=== PATIENT | female | born 1955 | race Two or more races ===

== ENCOUNTER 2017-07-05 15:43 | Emergency (ER) | payer OTHER ==
--- NOTE | 2017-07-05 16:10 | PDOC ---
Rapid Medical Evaluation Time Seen by Provider: 07/05/17 16:08 Medical Evaluation: Allergies Allergy/AdvReac Type Severity Reaction Status Date / Time No Known Allergies Allergy Verified 01/25/17 10:32 I have performed a brief in-person evaluation of this patient. The patient presents with a chief complaint of: many allergies to pollen, congested, cough Pertinent physical exam findings: swelling to lower eyes I have ordered the following: nothing The patient will proceed to the ED for further evaluation.
[2017-07-05 16:14] VITALS: BP 152/92; PULSE 90; TEMP 98.2; BMI 37.0
--- NOTE | 2017-07-05 18:30 | PDOC ---
History of Present Illness - General Chief Complaint: Respiratory Stated Complaint: PAIN Time Seen by Provider: 07/05/17 16:08 History Source: Patient Exam Limitations: Language Barrier (AVST #[id number]) - History of Present Illness Initial Comments: 07/05/17 18:26 This is a 61-year-old woman past medical history of hypertension, NIDDM, left breast CA status post lumpectomy many years ago and seasonal ALLERGIES presents emergency departments with nasal congestion and eye swelling for the past 3 days. The patient states she is very concerned that paramedics. Have to come to the house for a heart attack or if she would stop breathing. Patient states she is able to breathe through her mouth without any difficulty and is concerned about her nasal congestion. Patient states she has this recurring symptoms every year around this time. She denies any fevers, cough, shortness of breath, chest pain, headaches, dizziness. Past History - Past Medical History Allergies/Adverse Reactions: Allergies Allergy/AdvReac Type Severity Reaction Status Date / Time No Known Allergies Allergy Verified 07/05/17 16:09 Home Medications: Ambulatory Orders Ipratropium [place] 15 ml NS TID 14 Days #2 spray 07/05/17 Cancer: Yes (RT BREAST) COPD: No Diabetes: Yes HTN: Yes - Suicide/Smoking/Psychosocial Hx Smoking History: Never smoked Review of Systems - Review of Systems Able to Perform ROS?: Yes Is the patient limited Slovak proficient: Yes Constitutional: No: Symptoms Reported HEENTM: Yes: See HPI Respiratory: No: Symptoms reported Cardiac (ROS): No: Symptoms Reported ABD/GI: No: Symptoms Reported : No: Symptoms Reported Musculoskeletal: No: Symptoms Reported Integumentary: No: Symptoms Reported Neurological: No: Symptoms reported *Physical Exam - Vital Signs Last Vital Signs Temp Pulse Resp BP Pulse Ox 98.2 F 90 19 152/92 100 07/05/17 16:09 07/05/17 16:09 07/05/17 16:09 07/05/17 16:09 07/05/17 16:09 - Physical Exam General Appearance: Yes: Appropriately Dressed. No: Apparent Distress HEENT: positive: TMs Normal, Nasal Congestion, Other (Inflamed nasal turbinates) . negative: Rhinorrhea Neck: positive: Trachea midline, Supple. negative: Stridor Respiratory/Chest: positive: Lungs Clear, Normal Breath Sounds. negative: Respiratory Distress, Accessory Muscle Use, Wheezing Cardiovascular: positive: Regular Rhythm, Regular Rate. negative: Murmur Musculoskeletal: positive: Normal Inspection Extremity: positive: Normal Inspection Integumentary: positive: Normal Color, Dry, Warm Neurologic: positive: Alert, Normal Response Medical Decision Making - Medical Decision Making 07/05/17 18:31 A/P: 61-year-old woman with nasal congestion, watery eyes for the past 4 days Conjunctiva clear No discharge from her eyes Oropharynx clear without erythema or exudates TMs within normal limits bilaterally Inflamed nasal turbinates present with nasal congestion. Patient is speaking in run-on sentences Respirations are even and unlabored Lungs clear to auscultation bilaterally ALLERGIC rhinitis His explained to the patient she needs to take [id number] medications for relief of ALLERGY symptoms including eyedrops, antihistamines. I will give the patient prescription for Atrovent nasal spray in addition to [id number] treatments. Patient verbalized understanding of discharge instructions via criminal justice social worker #[id number]. *DC/Admit/Observation/Transfer Diagnosis at time of Disposition: Allergic rhinitis Qualifiers: Allergic rhinitis trigger: pollen Allergic rhinitis seasonality: seasonal Qualified Code(s): J30.1 - Allergic rhinitis due to pollen - Discharge Dispostion Disposition: HOME Condition at time of disposition: Stable Admit: No - Prescriptions Prescriptions: Ipratropium [place] 15 ml NS TID 14 Days #2 spray - Referrals Referrals: Horacio Carpenter [Primary Care Provider] - - Patient Instructions Printed Discharge Instructions: DI for Allergic Rhinitis Additional Instructions: Take ipratropium nasal spray 2 sprays 3 times a day for the next 2 weeks. Take Xyzal [id number] 1 tablet daily for the next 2 weeks Use ALLERGY eyedrops from [facility] or [facility] or pharmacy [facility]. Follow manufacture's instructions for appropriate dosage Return to emergency room for shortness of breath or chest pain or any other concerns. Elbe ipratropium nasal spray 2 sprays 3 veces al da mumtaz las prximas 2 semanas. [facility] Xyzal sin receta 1 tableta al da mumtaz las prximas 2 semanas Use gotas para los ojos de ALLERGY de [facility] o [facility] o de la farmacia [facility]. Siga las instrucciones del fabricante para la dosificacin apropiada Regrese a la zina de emergencias para dificultad para respirar o dolor en el pecho o cualquier otra preocupacin. Print Language: CAMEROONIAN - Post Discharge Activity
== END 2017-07-05 18:43 | disposition home or self-care (01) ==
LOC: JERFT 15:43
DX: J30.1 Allergic rhinitis due to pollen (principal); I10 Essential (primary) hypertension; E11.9 Type 2 diabetes mellitus without complications; Z79.84 Long term (current) use of oral hypoglycemic drugs; Z85.3 Personal history of malignant neoplasm of breast
CPT/HCPCS: 99281-25

== ENCOUNTER 2023-08-13 14:53 | Observation (INO) | payer OTHER ==
[2023-08-13] MEDS ORDERED: ACETAMINOPHEN INJECTION 100 ML IVPB ONE (16:19)
[2023-08-13] MEDS: ACETAMINOPHEN 1000 MG/100 ML BAG IVPB ONE (16:52)
[2023-08-13 17:01] LABS: EOS % 3.7 % (0-4.5); HEMOGLOBIN 11.4 GM/dL (10.7-15.3); MCH 26.2 pg (25.7-33.7); MCHC 32.5 g/dl (32.0-36.0); MEAN CELL VOLUME 80.8 fl (80-96); MEAN PLT VOLUME 8.2 fl (7.5-11.1); MONO % 10.7 % (3.8-10.2); NEUT % 58.6 % (42.8-82.8); PLATELET COUNT 330 10^3/uL (134-434); RBC 4.33 M/mm3 (3.60-5.2); RDW 14.9 % (11.6-15.6); WHITE BLOOD COUNT 7.4 K/mm3 (4.0-10.0)
[2023-08-13 17:19] LABS: INR 0.97 (0.83-1.09); PROTHROMBIN TIME (PATIENT) 11.2 SEC (9.7-13.0)
[2023-08-13 17:20] LABS: POTASSIUM 5.6 mmol/L (3.5-5.1)
[2023-08-13 17:21] LABS: CALCIUM 9.3 mg/dL (8.5-10.1)
[2023-08-13 17:22] LABS: ACTIVATED PTT 28.7 SECONDS (25.2-36.5); ALBUMIN 3.5 g/dl (3.4-5.0); BLOOD UREA NITROGEN 15.6 mg/dL (7-18); MAGNESIUM 2.6 mg/dL (1.8-2.4)
[2023-08-13 17:25] LABS: CREATININE 1.3 mg/dL (0.55-1.3)
[2023-08-13 17:29] LABS: BILIRUBIN,TOTAL 0.4 mg/dL (0.2-1)
[2023-08-13 17:30] LABS: N-TERMINAL BNP 255.3 pg/ml (5-125)
[2023-08-13 18:01] LABS: ERYTHROCYTE SEDIMENTATION RATE 83 mm/hr (0-30)
[2023-08-13] MEDS ORDERED: morphine SULFATE 4 MG/ML VIAL ONE (18:24)
[2023-08-13] MEDS: morphine CARPU-JECT 4 MG/1 ML DISP.SYRIN IVPUSH ONE (18:29)
[2023-08-13] MEDS ORDERED: HYDROmorphone HCl 2 MG/ML VIAL ONE (19:26)
[2023-08-13] MEDS: HYDROmorphone HCl 2 MG/ML VIAL IVPUSH ONE (19:37)
[2023-08-13] MEDS: ONDANSETRON 4 MG/2 ML VIAL IVPUSH ONE (21:18)
[2023-08-13] MEDS: LACTATED RINGERS SOLUTION 1000 ML INFUS.BAG IV ONE (21:18)
[2023-08-13] MEDS ORDERED: ONDANSETRON 4 MG/2 ML VIAL ONE (21:20)
[2023-08-14] MEDS ORDERED: LORATADINE 10 MG TABLET PO PRN (04:04)
[2023-08-14] MEDS ORDERED: FLUTICASONE PROP 0.05% 16 GM NASAL SPRAY NS PRN (04:04)
[2023-08-14 06:17] LABS: HEMATOCRIT 33.8 % (32.4-45.2); HEMOGLOBIN 10.8 GM/dL (10.7-15.3); MCH 25.9 pg (25.7-33.7); MEAN CELL VOLUME 81.1 fl (80-96); PLATELET COUNT 277 10^3/uL (134-434); RBC 4.17 M/mm3 (3.60-5.2); RDW 15.4 % (11.6-15.6); WHITE BLOOD COUNT 8.4 K/mm3 (4.0-10.0)
[2023-08-14 06:37] LABS: POTASSIUM 5.3 mmol/L (3.5-5.1)
[2023-08-14 06:40] LABS: ALBUMIN 3.2 g/dl (3.4-5.0); BLOOD UREA NITROGEN 19.5 mg/dL (7-18); CALCIUM 8.6 mg/dL (8.5-10.1); MAGNESIUM 2.4 mg/dL (1.8-2.4)
[2023-08-14 06:43] LABS: CREATININE 1.3 mg/dL (0.55-1.3); PHOSPHOROUS 5.4 mg/dL (2.5-4.9)
[2023-08-14 06:44] LABS: BILIRUBIN,TOTAL 0.2 mg/dL (0.2-1)
[2023-08-14 06:45] LABS: TOT PROT 7.2 g/dl (6.4-8.2)
[2023-08-14] MEDS: INSULIN ASPART SLIDING SCALE (NOVOLOG) 1 VIAL SQ SCH (06:54)
[2023-08-14] MEDS ORDERED: INSULIN ASPART SLIDING SCALE (NOVOLOG) 1 VIAL SQ ONE ×5 (06:56→08:33)
[2023-08-14] MEDS: ASPIRIN COATED 81 MG TABLET.EC PO SCH (09:10)
[2023-08-14] MEDS: EMPAGLIFLOZIN (JARDIANCE) 10 MG TABLET PO SCH (09:10)
[2023-08-14] MEDS: FUROSEMIDE 40 MG TABLET (FP) PO SCH (09:10)
[2023-08-14] MEDS: ENOXAPARIN NA (PORCINE) 40 MG/0.4 ML DISP.SYRIN SQ SCH (09:10)
[2023-08-14] MEDS: amLODIPine BESYLATE 10 MG TABLET (FP) PO SCH (09:10)
[2023-08-14] MEDS: ENALAPRIL MALEATE 10 MG TABLET PO SCH (09:11)
[2023-08-14] MEDS ORDERED: INSULIN (LEVEMIR) 100 UNITS/ML UNITS SQ ONE (10:41)
[2023-08-14] MEDS: INSULIN (LEVEMIR) 100 UNITS/ML UNITS SQ SCH (10:47)
[2023-08-14 14:32] VITALS: BMI 40.6
[2023-08-14] MEDS: SODIUM POLYSTYRENE SULFONATE 15 GM/60 ML BOTTLE PO ONE (17:14)
[2023-08-14] MEDS: CALCIUM ACETATE 667 MG CAPSULE (FP) PO SCH (17:45)
[2023-08-14] MEDS: ATORVASTATIN CA 40 MG TABLET (FP) PO SCH (21:21)
[2023-08-14] MEDS: GABAPENTIN 300 MG CAPSULE PO SCH (21:21)
[2023-08-15 09:09] LABS: POTASSIUM 4.5 mmol/L (3.5-5.1)
[2023-08-15 09:14] LABS: BLOOD UREA NITROGEN 21.2 mg/dL (7-18); PHOSPHOROUS 3.7 mg/dL (2.5-4.9)
[2023-08-15 09:17] LABS: CREATININE 1.2 mg/dL (0.55-1.3)
[2023-08-15] MEDS ORDERED: ACETAMINOPHEN 325 MG TABLET (FP) PO PRN (09:24)
[2023-08-15] MEDS ORDERED: traMADol HCL 50 MG TABLET PO PRN (09:26)
[2023-08-15] MEDS: EMPAGLIFLOZIN (JARDIANCE) 10 MG TABLET PO SCH (10:34)
[2023-08-15] MEDS: ENALAPRIL MALEATE 10 MG TABLET PO SCH (10:35)
[2023-08-15] MEDS: GABAPENTIN 400 MG CAPSULE PO SCH (21:12)
[2023-08-16 08:44] LABS: BASO % 0.5 % (0-2.0); EOS % 4.8 % (0-4.5); HEMATOCRIT 34.4 % (32.4-45.2); LYMPH % 33.2 % (8-40); MCH 25.7 pg (25.7-33.7); MCHC 32.1 g/dl (32.0-36.0); MEAN CELL VOLUME 80.1 fl (80-96); MEAN PLT VOLUME 8.4 fl (7.5-11.1); MONO % 12.7 % (3.8-10.2); NEUT % 48.8 % (42.8-82.8); PLATELET COUNT 340 10^3/uL (134-434); RBC 4.29 M/mm3 (3.60-5.2); WHITE BLOOD COUNT 6.1 K/mm3 (4.0-10.0)
[2023-08-16 09:00] LABS: POTASSIUM 4.7 mmol/L (3.5-5.1)
[2023-08-16 09:07] LABS: BLOOD UREA NITROGEN 22.1 mg/dL (7-18)
[2023-08-16 09:10] LABS: CREATININE 1.2 mg/dL (0.55-1.3)
[2023-08-16] MEDS: CEPHALEXIN MONOHYDRATE 500 MG CAPSULE (UD) PO SCH (17:54)
[2023-08-17 01:39] VITALS: RESP 18
[2023-08-17 15:43] VITALS: BP 134/75; PULSE 65; TEMP 97.5
== END 2023-08-17 17:42 | disposition home or self-care (01) ==
LOC: JER 14:53 → JERBED 23:25 → J7W 08-14 14:18
PROVIDERS: ADMIT Internal Medicine; ATTEND Internal Medicine
PROC: 3E033GC Introduction of Other Therapeutic Substance into Peripheral Vein, Percutaneous Approach (ICD-10-PCS; principal; 2023-08-13)
PROC: 3E0337Z Introduction of Electrolytic and Water Balance Substance into Peripheral Vein, Percutaneous Approach (ICD-10-PCS; 2023-08-13)
PROC: 3E013VG Introduction of Insulin into Subcutaneous Tissue, Percutaneous Approach (ICD-10-PCS; 2023-08-13)
PROC: 3E013GC Introduction of Other Therapeutic Substance into Subcutaneous Tissue, Percutaneous Approach (ICD-10-PCS; 2023-08-13)
DX: R60.0 Localized edema (principal); R26.2 Difficulty in walking, not elsewhere classified; M79.661 Pain in right lower leg; M79.662 Pain in left lower leg; E87.5 Hyperkalemia; E83.39 Other disorders of phosphorus metabolism; E11.22 Type 2 diabetes mellitus with diabetic chronic kidney disease; I12.9 Hypertensive chronic kidney disease with stage 1 through stage 4 chronic kidney disease, or unspecified chronic kidney disease; N18.9 Chronic kidney disease, unspecified; E78.5 Hyperlipidemia, unspecified; E66.9 Obesity, unspecified; Z68.41 Body mass index [BMI] 40.0-44.9, adult; Z85.3 Personal history of malignant neoplasm of breast
CPT/HCPCS: 0241U-QW; 36415; 71046-TC-FY; 73590-TC-LT-FY; 73590-TC-RT-FY; 73610-TC-LT-FY; 73610-TC-RT-FY; 73630-TC-LT; 73630-TC-RT-FY; 73701-TC-RT; 80048; 80053; 80061; 82550; 82962; 83036; 83735; 83880; 84100; 84443; 85025; 85027; 85610; 85651; 85730; 86038; 86140; 86431; 93005; 93010; 93306-TC; 93970-TC; 96372; 96374; 96375; 97116-GP; 97161-GP; 99285-25; G0378; J0131; Q9967

== ENCOUNTER 2023-08-29 14:41 | Observation (INO) | payer OTHER ==
[2023-08-29] MEDS ORDERED: ACETAMINOPHEN INJECTION 100 ML IVPB ONE (15:51)
[2023-08-29] MEDS: ACETAMINOPHEN 1000 MG/100 ML BAG IVPB ONE (16:50)
[2023-08-29 16:58] LABS: CHLORIDE 109 mmol/L (98-107); SODIUM 139 mmol/L (136-145)
[2023-08-29 17:00] LABS: CALCIUM 8.8 mg/dL (8.5-10.1)
[2023-08-29 17:01] LABS: ALBUMIN 3.3 g/dl (3.4-5.0); BLOOD UREA NITROGEN 14.6 mg/dL (7-18); CO2 27 mmol/L (21-32); GLUCOSE,RANDOM 109 mg/dL (74-106)
[2023-08-29 17:03] LABS: INR 0.95 (0.83-1.09); PROTHROMBIN TIME (PATIENT) 10.8 SEC (9.7-13.0)
[2023-08-29 17:04] LABS: BASO % 1.1 % (0-2.0); CREATININE 1.2 mg/dL (0.55-1.3); EOS % 4.9 % (0-4.5); HEMATOCRIT 33.2 % (32.4-45.2); HEMOGLOBIN 10.6 GM/dL (10.7-15.3); LYMPH % 26.6 % (8-40); MCH 25.6 pg (25.7-33.7); MCHC 31.9 g/dl (32.0-36.0); MEAN CELL VOLUME 80.3 fl (80-96); MEAN PLT VOLUME 8.9 fl (7.5-11.1); MONO % 8.1 % (3.8-10.2); NEUT % 59.3 % (42.8-82.8); PLATELET COUNT 315 10^3/uL (134-434); RBC 4.14 M/mm3 (3.60-5.2); RDW 15.2 % (11.6-15.6); SGOT/AST 42 U/L (15-37); SGPT/ALT 64 U/L (13-61); WHITE BLOOD COUNT 7.7 K/mm3 (4.0-10.0)
[2023-08-29 17:05] LABS: BILIRUBIN,TOTAL 0.3 mg/dL (0.2-1)
[2023-08-29 17:06] LABS: ACTIVATED PTT 28.2 SECONDS (25.2-36.5); TOT PROT 7.9 g/dl (6.4-8.2)
[2023-08-29 17:07] LABS: ALK PHOS 79 U/L (45-117)
[2023-08-29 17:09] LABS: ANION GAP 3 mmol/L (4-13); POTASSIUM 6.1 mmol/L (3.5-5.1)
[2023-08-29 18:35] LABS: POTASSIUM 5.5 mmol/L (3.5-5.1)
[2023-08-29 18:36] LABS: CALCIUM 8.8 mg/dL (8.5-10.1)
[2023-08-29 18:37] LABS: BLOOD UREA NITROGEN 14.7 mg/dL (7-18)
[2023-08-29 18:41] LABS: CREATININE 1.2 mg/dL (0.55-1.3)
[2023-08-29] MEDS ORDERED: INSULIN ASPART SLIDING SCALE (NOVOLOG) 1 VIAL SQ ONE (22:36)
[2023-08-29] MEDS: INSULIN ASPART SLIDING SCALE (NOVOLOG) 1 VIAL SQ SCH (22:39)
[2023-08-29] MEDS ORDERED: FUROSEMIDE 40 MG/4 ML INJECTABLE VIAL ONE (22:44)
[2023-08-29] MEDS: FUROSEMIDE 40 MG/4 ML INJECTABLE VIAL IVPUSH ONE (22:58)
[2023-08-30 01:30] LABS: EPI CELLS 2 /uL (0-25.1); HYALINE CASTS 0 /uL (0-3.1); URINE APPEARANCE CLEAR; URINE BACTERIA 86 /uL (0-1359); URINE BILIRUBIN NEGATIVE (NEGATIVE); URINE COLOR YELLOW; URINE GLUCOSE (UA) 3+ (NEGATIVE); URINE KETONE NEGATIVE (NEGATIVE); URINE LEUK ESTERASE TRACE (NEGATIVE); URINE NITRITE NEGATIVE (NEGATIVE); URINE PROTEIN NEGATIVE (NEGATIVE); URINE RBC 9 /uL (0-23.9); URINE UROBILINOGEN 0.2 mg/dL (0.2-1.0); URINE WBC 41 /uL (0-25.8)
[2023-08-30 01:37] LABS: CREATININE, URINE RANDOM < 13.0 mg/dL (30-150)
[2023-08-30 02:22] VITALS: BMI 38.7
[2023-08-30] MEDS: hydrALAZINE HCL 20 MG/ML VIAL IVPUSH ONE (05:05)
[2023-08-30] MEDS: IBUPROFEN 400 MG TABLET (FP) PO ONE (05:39)
[2023-08-30] MEDS ORDERED: INSULIN ASPART SLIDING SCALE (NOVOLOG) 1 VIAL SQ SCH (07:00)
[2023-08-30 10:06] LABS: HEMATOCRIT 33.5 % (32.4-45.2); HEMOGLOBIN 10.7 GM/dL (10.7-15.3); MCH 25.7 pg (25.7-33.7); MCHC 31.8 g/dl (32.0-36.0); MEAN CELL VOLUME 80.7 fl (80-96); MEAN PLT VOLUME 8.9 fl (7.5-11.1); PLATELET COUNT 253 10^3/uL (134-434); RBC 4.15 M/mm3 (3.60-5.2); RDW 15.5 % (11.6-15.6); WHITE BLOOD COUNT 6.7 K/mm3 (4.0-10.0)
[2023-08-30 10:15] LABS: RETICULOCYTES 1.51 % (0.5-1.5)
[2023-08-30 10:21] LABS: POTASSIUM 4.7 mmol/L (3.5-5.1)
[2023-08-30 10:25] LABS: ALBUMIN 3.2 g/dl (3.4-5.0); MAGNESIUM 1.9 mg/dL (1.8-2.4)
[2023-08-30 10:28] LABS: CREATININE 1.3 mg/dL (0.55-1.3)
[2023-08-30 10:29] LABS: TOT PROT 7.5 g/dl (6.4-8.2)
[2023-08-30 10:30] LABS: BILIRUBIN,TOTAL 0.3 mg/dL (0.2-1)
[2023-08-30] MEDS: ASPIRIN COATED 81 MG TABLET.EC PO SCH (11:07)
[2023-08-30] MEDS: GABAPENTIN 400 MG CAPSULE PO SCH (11:07)
[2023-08-30] MEDS: ENOXAPARIN NA (PORCINE) 40 MG/0.4 ML DISP.SYRIN SQ SCH (11:07)
[2023-08-30] MEDS: amLODIPine BESYLATE 10 MG TABLET (FP) PO SCH (11:07)
[2023-08-30] MEDS: FUROSEMIDE 100 MG/10 ML INJECTABLE VIAL IVPB SCH (15:09)
[2023-08-30] MEDS: hydrALAZINE HCL 20 MG/ML VIAL IVPB ONE (15:11)
[2023-08-30] MEDS: FUROSEMIDE 40 MG/4 ML INJECTABLE VIAL IVPUSH SCH (15:16)
[2023-08-30 18:56] VITALS: RESP 17
[2023-08-30] MEDS: diphenhydrAMINE HCL 25 MG CAPSULE (FP) PO ONE (22:47)
[2023-08-31 08:09] LABS: BASO % 0.8 % (0-2.0); EOS % 5.4 % (0-4.5); HEMATOCRIT 35.8 % (32.4-45.2); HEMOGLOBIN 11.8 GM/dL (10.7-15.3); LYMPH % 33.7 % (8-40); MCH 26.3 pg (25.7-33.7); MCHC 32.9 g/dl (32.0-36.0); MEAN PLT VOLUME 9.1 fl (7.5-11.1); MONO % 9.7 % (3.8-10.2); NEUT % 50.4 % (42.8-82.8); PLATELET COUNT 265 10^3/uL (134-434); RBC 4.47 M/mm3 (3.60-5.2); RDW 14.9 % (11.6-15.6); WHITE BLOOD COUNT 5.9 K/mm3 (4.0-10.0)
[2023-08-31 08:18] LABS: ALBUMIN 3.4 g/dl (3.4-5.0); CALCIUM 9.4 mg/dL (8.5-10.1)
[2023-08-31 08:19] LABS: BLOOD UREA NITROGEN 22.3 mg/dL (7-18)
[2023-08-31 08:21] LABS: CREATININE 1.4 mg/dL (0.55-1.3)
[2023-08-31 08:23] LABS: BILIRUBIN,TOTAL 0.3 mg/dL (0.2-1); TOT PROT 7.9 g/dl (6.4-8.2)
[2023-08-31] MEDS ORDERED: REGADENOSON 0.4 MG/5 ML PRE-FILLED SYRINGE IVPUSH ONE (09:26)
[2023-08-31] MEDS: REGADENOSON 0.4 MG/5 ML PRE-FILLED SYRINGE IVPUSH ONE (10:00)
[2023-08-31] MEDS: ENALAPRIL MALEATE 10 MG TABLET PO SCH (11:39)
[2023-08-31] MEDS: NIFEdipine E.R. 30 MG TABLET PO SCH (13:34)
[2023-08-31 14:28] VITALS: BP 165/77; PULSE 73; TEMP 97.9
== END 2023-08-31 17:25 | disposition home or self-care (01) ==
LOC: JER 14:41 → JERBED 19:48 → J4S 08-30 01:32
PROVIDERS: ADMIT Internal Medicine; ATTEND Internal Medicine
PROC: 3E033NZ Introduction of Analgesics, Hypnotics, Sedatives into Peripheral Vein, Percutaneous Approach (ICD-10-PCS; principal; 2023-08-29)
PROC: 3E023GC Introduction of Other Therapeutic Substance into Muscle, Percutaneous Approach (ICD-10-PCS; 2023-08-29)
PROC: 3E013VG Introduction of Insulin into Subcutaneous Tissue, Percutaneous Approach (ICD-10-PCS; 2023-08-29)
PROC: 3E033GC Introduction of Other Therapeutic Substance into Peripheral Vein, Percutaneous Approach (ICD-10-PCS; 2023-08-29)
DX: I10 Essential (primary) hypertension (principal); E11.9 Type 2 diabetes mellitus without complications; R91.8 Other nonspecific abnormal finding of lung field; E66.9 Obesity, unspecified; R60.0 Localized edema; E78.5 Hyperlipidemia, unspecified; R06.09 Other forms of dyspnea; Z85.3 Personal history of malignant neoplasm of breast; Z87.891 Personal history of nicotine dependence
CPT/HCPCS: 0241U-QW; 36415; 71046-TC-FY; 71275-TC; 78452-TC; 80048; 80053; 81003; 82570; 82728; 82962; 83540; 83550; 83735; 83880; 84156; 84466; 84484; 85025; 85027; 85045; 85610; 85730; 93005; 93010; 93017; 96372; 96374; 96375; 96376; 97116-GP; 97162-GP; 99285-25; A9502; G0378; J0131; J2785